=== PATIENT | male | born 1965 | race Caucasian/White ===

== ENCOUNTER → 2020-03-03 11:21 | Outpatient (BNVA) | payer SELFPAY | PROVIDERS: Visit Provider Registered Nurse | DX: E29.1 Testicular hypofunction (principal); I10 Essential (primary) hypertension; E78.5 Hyperlipidemia, unspecified; N40.0 Benign prostatic hyperplasia without lower urinary tract symptoms | CPT/HCPCS: 80053; 80061; 81000; 84153; 84402; 84403; 85025 ==

== ENCOUNTER 2024-01-28 12:44 | Outpatient (CLI) | payer OTHER, SELFPAY ==
--- NOTE | 2024-01-28 12:50 | US_ITS ---
WS: [id number] ULTRASOUND RENAL TECHNIQUE: Ultrasound examination of both kidneys. CLINICAL INFORMATION: MICROCYTIC HEMATURIA COMPARISON: None. FINDINGS: RIGHT: Prior RIGHT nephrectomy. LEFT: Left kidney is normal in size and appearance. Echogenicity: Normal. Cortical thickness: 1.3 cm; Normal. Hydronephrosis: None. Perinephric fluid: None. Left kidney measures: 12.5 cm x 6.4 cm x 6.1 cm. Normal visualized aorta. Mild diffuse bladder wall thickening can be seen with chronic cystitis or bl adder outlet obstruction. Enlarged nodular prostate measures 5.6 x 3.9 x 3.8 cm. Recommend correlatio n PSA. US/US renal BI* [id number] IMPRESSION: 1. Prior RIGHT nephrectomy. 2. LEFT kidney appears normal. 3. Mild fused bladder wall thickening can be seen with chronic cystitis or tawnya dder outlet obstruction. 4. Enlarged nodular prostate. Recommend correlation PSA.
== END 2024-01-28 12:45 | disposition home or self-care (01) ==
LOC: RAD 12:46
PROVIDERS: PCP Registered Nurse; Visit Provider Nurse Practitioner Family
DX: N40.0 Benign prostatic hyperplasia without lower urinary tract symptoms (principal); Z90.5 Acquired absence of kidney; R31.29 Other microscopic hematuria
CPT/HCPCS: 76770